=== PATIENT | female | born 1970 | race Caucasian/White ===

== ENCOUNTER 2020-10-15 15:34 | Emergency (ER) | payer BC, OTHER ==
[~2020-10-15 15:34] MED LIST: BENTYL 20MG TAB20 MG PO; DOXYCYCLINE HY100 MG PO; HUMALOG100 UNIT/1 SQ; HYDROCODON-ACE1 EAC2 PO; LANTUS100 UNIT/1 SQ; LISINOPRIL20 MG PO; PHENERGAN 25 MG25 M1 PO; PRAVACHOL20 MG PO; RYBELSUS7 MG PO; TAMIFLU 75 MG C75 MG PO; ZOFRAN4 MG PO
[2020-10-15 17:09] LABS: HEMOGLOBIN 14.5 gm/dl (12.3-15.3); RED BLOOD COUNT 5.09 M/UL (4.00-5.10)
[2020-10-15 17:37] LABS: BUN/CREATININE RATIO 13 (0-10)
[2020-10-15] MEDS ORDERED: ONDANSETRON ODT4 MG SL (20:02)
[2020-10-19 09:31] LABS: WHITE BLOOD COUNT 17.4 K/UL (4.5-11.0)
== END 2020-10-15 23:05 | disposition home or self-care (01) ==
LOC: ER1 15:34
PROVIDERS: Physician Assistant
DX: U07.1 COVID-19 (principal); R00.0 Tachycardia, unspecified; I10 Essential (primary) hypertension; E11.9 Type 2 diabetes mellitus without complications; Z88.5 Allergy status to narcotic agent
CPT/HCPCS: 71045; 80053; 81001; 83605; 85025; 87040; 87081; 87880; 93005; 96374; 99284; J2405; M0239; U0002

== ENCOUNTER 2020-11-02 13:25 | Emergency (ER) | payer BC, OTHER ==
[~2020-11-02 13:25] MED LIST changes: +ONDANSETRON ODT4 MG SL
[2020-11-02 15:35] LABS: HEMOGLOBIN 14.8 gm/dl (12.3-15.3); RED BLOOD COUNT 5.01 M/UL (4.00-5.10); WHITE BLOOD COUNT 8.7 K/UL (4.5-11.0)
[2020-11-02 15:58] LABS: BUN/CREATININE RATIO 14 (0-10)
[2020-11-02] MEDS ORDERED: MEDROL4 MG PO (16:18)
[2020-11-02] MEDS ORDERED: ZITHROMAX250 MG PO (16:18)
== END 2020-11-02 16:45 | disposition home or self-care (01) ==
LOC: ER1 13:25
PROVIDERS: Preventive Medicine Occupational Medicine
DX: R09.02 Hypoxemia (principal); R53.83 Other fatigue; E11.9 Type 2 diabetes mellitus without complications; Z88.5 Allergy status to narcotic agent; Z86.16 Personal history of COVID-19
CPT/HCPCS: 36600; 71045; 80053; 82550; 82553; 82803; 83690; 83874; 84484; 85025; 85652; 86140; 96374; 99283; J2930

== ENCOUNTER → 2020-11-08 | Outpatient (CLI) | payer BC, OTHER ==
[~2020-11-08] MED LIST changes: +MEDROL4 MG PO; +ZITHROMAX250 MG PO
== END ==
LOC: CT 14:30
DX: R09.02 Hypoxemia (principal); R06.02 Shortness of breath; B97.21 SARS-associated coronavirus as the cause of diseases classified elsewhere; R00.0 Tachycardia, unspecified
CPT/HCPCS: Q9967